=== PATIENT | male | born 1980 | race Caucasian/White ===

== ENCOUNTER → 2017-04-16 | Outpatient (CLI) | payer BC ==
[~2017-04-16] MED LIST: ALLEGRA-D1 TAB.SR1 PO
--- NOTE | ~2017-04-16 | MR164 ---
[facility] A Service of [facility] & [facility] RADIOLOGY TEXT RESULTS PATIENT: BARBARA GUERRERO LOCATION: [facility] : 84 UNIT #: [id number] AGE: [address]: Delvin Oh MD SEX: M ORDER DR: [id number] [address] [address] [id number] O MR#: [id number] Acc #: [id number] NAME: BARBARA GUERRERO : 1980 SEX: M STUDY DATE/TIME: 04/16/2017 15:48 UNIT: [facility] ROOM: STUDY DESCRIPTION: MR Shoulder Wo Contrast Lt Attending Physician: Delvin Oh M.D. Referring Physician: Delvin Oh M.D. Ordering Physician: Delvin Oh M.D. Primary Care Physician: Delvin Oh M.D. MRI CENTER REPORT This report is preliminary unless electronic signature is present. EXAM Left shoulder MRI without contrast, 04/16/2017. HISTORY 36-year-old male with left shoulder pain for 6 months. Limited range of motion. No specific injury. No prior left shoulder surgery COMPARISON Left shoulder x-rays, 11/30/2016. TECHNIQUE Routine unenhanced multiplanar, multisequence high field MR imaging of the left shoulder was performed. FINDINGS The rotator cuff is intact. No significant tendinopathy. Long biceps tendon is intact and well positioned in the bicipital groove. No evidence of a labral tear. Glenohumeral articular cartilage is intact. No glenohumeral effusion. Mild degenerative change of the acromioclavicular joint. There is periarticular soft tissue edema and reactive marrow edema in the distal clavicle and acromion. Findings suggest an active inflammatory component. No significant impingement on the supraspinatus outlet. No subacromial spur. No inflammation of the subacromial/subdeltoid bursa. Remainder of the bone marrow signal is within expected limits. Visualized musculature is unremarkable. IMPRESSION 1. No evidence of a rotator cuff tear or significant tendinopathy. 2. No significant labral pathology. STS. [facility] A Service of [facility] & [facility] RADIOLOGY TEXT RESULTS PATIENT: BARBARA GUERRERO LOCATION: [facility] : 84 UNIT #: [id number] AGE: [address]: Delvin Oh MD SEX: M ORDER DR: 3. 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 Dictated by... Matti Gotti M.D. THIS IS AN ELECTRONICALLY VERIFIED REPORT Matti Gotti M.D. at 04/18/2017 1:58 PM MARY/francisco javier TD: 04/17/2017 12:24 JOB #: [id number] MRI CENTER REPORT Page 1 of 1
== END | disposition home or self-care (01) ==
LOC: SMRI 14:43
DX: M25.512 Pain in left shoulder (principal); M19.012 Primary osteoarthritis, left shoulder
CPT/HCPCS: 73221